=== PATIENT | female | born 1970 | race Hispanic/Latino ===

== ENCOUNTER 2017-09-12 22:33 | Emergency (ER) | payer OTHER ==
[~2017-09-12] VITALS: Ht 162.6 cm; Wt 73.7 kg
[2017-09-12] MEDS ORDERED: KETOROLAC TROMETHAMINE 60 MG/2 ML VIAL IM ONE (23:00)
[2017-09-12] MEDS ORDERED: ZOFRAN ODT4 MG SL (23:15)
[2017-09-12] MEDS ORDERED: IBUPROFEN400 MG PO (23:15)
[2017-09-12] MEDS ORDERED: BROMFED DM COU118 ML PO (23:15)
[2017-09-12 23:31] VITALS: BP 144/91
== END 2017-09-12 23:11 | disposition home or self-care (01) ==
LOC: FSED 22:33
DX: R50.9 Fever, unspecified (principal); R05 Cough; J11.1 Influenza due to unidentified influenza virus with other respiratory manifestations
CPT/HCPCS: 87400; 99282; J1885